=== PATIENT | female | born 1980 | race Caucasian/White ===

== ENCOUNTER → 2025-03-30 09:44 | Outpatient (REF) | payer OTHER, SELFPAY | LOC: HWRAD 09:44 | PROVIDERS: FAMILY PHYSICIAN Family Medicine | DX: N92.6 Irregular menstruation, unspecified (principal); R63.5 Abnormal weight gain | CPT/HCPCS: 76830; 76856 ==

== ENCOUNTER → 2025-08-04 08:02 | Outpatient (REF) | payer OTHER, SELFPAY | LOC: HWWDC 08:02 | PROVIDERS: ATTENDING PHYSICIAN Physician Assistant Medical; REFERRING PHYSICIAN Obstetrics & Gynecology | DX: Z12.31 Encounter for screening mammogram for malignant neoplasm of breast (principal) | CPT/HCPCS: 77063; 77067 ==

== ENCOUNTER → 2025-10-20 10:05 | Outpatient (REF) | payer OTHER, SELFPAY | LOC: RAD 10:05 | PROVIDERS: ATTENDING PHYSICIAN Family Medicine | DX: M79.641 Pain in right hand (principal); M79.642 Pain in left hand | CPT/HCPCS: 73130 ==